=== PATIENT | male | born 1995 | race Caucasian/White ===

== ENCOUNTER 2023-07-16 06:16 | Day surgery (SDC) | payer BC ==
[2023-07-10 15:40] VITALS: BMI 23.1
[2023-07-16] MEDS ORDERED: BUPIVACAINE HCL/EPINEPHRINE/PF 30 ML VIAL IJ ONE (07:14)
[2023-07-16] MEDS ORDERED: ONDANSETRON 4 MG/2 ML VIAL ONE ×2 (07:18→09:44)
[2023-07-16] MEDS ORDERED: PROPOFOL 20 ML ONE (07:18)
[2023-07-16] MEDS ORDERED: DEXAMETHASONE SOD PHOSPHATE 4 MG/1 ML VIAL ONE ×2 (07:18→09:44)
[2023-07-16] MEDS ORDERED: TRANEXAMIC ACID 1000 MG/10 ML VIAL ONE (07:19)
[2023-07-16] MEDS ORDERED: MIDAZOLAM HCL 2 MG/2 ML SINGLE DOSE VIAL ONE (07:19)
[2023-07-16] MEDS ORDERED: SUCCINYLCHOLINE CHLORIDE 200 MG/10 ML SYRINGE ONE (07:19)
[2023-07-16] MEDS ORDERED: ceFAZolin SODIUM 1 GM VIAL ONE (07:19)
[2023-07-16] MEDS ORDERED: EPINEPHrine 1:1,000 1,000 MCG/ML ML ONE (07:25)
[2023-07-16] MEDS ORDERED: VANCOMYCIN 1,000 MG VIAL (RESTRICTED TO ID ONLY) ONE (07:25)
[2023-07-16] MEDS ORDERED: BUPIVACAINE HCL/PF 0.5% (5MG/ML) 10 ML VIAL ONE (07:28)
[2023-07-16] MEDS ORDERED: BUPIVACAINE LIPOSOME/PF (EXPAREL) 266 MG/20 ML VIAL ONE (07:28)
[2023-07-16] MEDS ORDERED: ONDANSETRON 4 MG/2 ML VIAL IVPUSH PRN (10:41)
[2023-07-16] MEDS ORDERED: oxyCODONE HCL 5 MG TABLET PO PRN ×2 (10:41)
[2023-07-16] MEDS ORDERED: LACTATED RINGERS SOLUTION 1,000 ML IV SCH (10:45)
[2023-07-16] MEDS ORDERED: FENTANYL CITRATE/PF 50 MCG/ML VIAL ONE (10:47)
[2023-07-16] MEDS ORDERED: ACETAMINOPHEN INJECTION 100 ML IVPB ONE (11:00)
[2023-07-16] MEDS ORDERED: ACETAMINOPHEN 1000 MG/100 ML BAG IVPB ONE (11:04)
[2023-07-16] MEDS ORDERED: oxyCODONE HCL 5 MG TABLET ONE (11:39)
[2023-07-16 13:11] VITALS: RESP 16; TEMP 97.3
[2023-07-16 13:17] VITALS: BP 124/59; PULSE 92
== END 2023-07-16 13:05 | disposition home or self-care (01) ==
LOC: FASU 06:16
PROVIDERS: ATTEND Orthopaedic Surgery
PROC: 0MRN47Z Replacement of Right Knee Bursa and Ligament with Autologous Tissue Substitute, Percutaneous Endoscopic Approach (ICD-10-PCS; principal; 2023-07-16 08:17)
DX: S83.511A Sprain of anterior cruciate ligament of right knee, initial encounter (principal); X58.XXXA Exposure to other specified factors, initial encounter; Y93.9 Activity, unspecified; Y92.9 Unspecified place or not applicable
CPT/HCPCS: 29888; C1713; 94760